=== PATIENT | male | born 1940 | race Caucasian/White ===

== ENCOUNTER 2019-12-13 14:07 | Outpatient (CLI) | payer MEDICARE, OTHER, SELFPAY ==
--- NOTE | 2019-12-13 14:14 | USCV_ITS ---
Javi Kennedy Age: 79 Gender: M : 1940 Exam Date: 12/13/2019 14:16 Ordering Phys: Nicholas Rausch MD Technologist: Sulaiman Gallegos [place]am [place] [facility] [place]ication: OPTIC NERVE TIA Risk Factors: Previous Vascular Surgery: Right Brachial BP: / Left Brachial BP: / Right Left Velocity (cm/s) Spectral Plaque Velocity (cm/s) Spectral Plaque Syst/Diast Broadening Syst/Diast Broadening 124.90/15.00 Prox CCA 136.80/ 14.90 110.00/17.00 Mid CCA 124.60/ 17.60 75.30/ 13.50 Distal CCA 97.50 / 23.00 69.90/ 17.10 Prox ICA 84.90 / 15.40 73.80/ 21.00 Mid ICA 87.10 / 13.20 77.70/ 24.90 Distal ICA 78.30 / 15.40 125.70 ECA 108.50 0.71 ICA/CCA 0.70 Antegrade Vertebral Antegrade 75.00/ 8.80 cm/s 63.90/ 11.00 cm/s Bi Subclavian Tri 105.8 111.4 0 0 FINDINGS Comparison: none available. No significant elevation of systolic or diastolic velocities. Waveforms are normal. No significant amount of calcified plaque or intimal thickening identified. CONCLUSIONS Bilateral ICA stenosis less than 50%. Minimal atherosclerosis in the bifurcations. Dr. Laxmi Martinez DO (Electronically Signed) Final Date: 13 December 2019 15:59 S
== END 2019-12-13 14:08 | disposition home or self-care (01) ==
LOC: RAD 14:12
PROVIDERS: Family Provider Family Medicine; PCP Family Medicine; Visit Provider Family Medicine
DX: I65.23 Occlusion and stenosis of bilateral carotid arteries (principal)
CPT/HCPCS: 93880

== ENCOUNTER 2020-04-28 10:12 | Outpatient (CLI) | payer MEDICARE, OTHER, SELFPAY ==
--- NOTE | 2020-04-28 10:27 | CT_ITS ---
WS: [id number] CT LUMBAR SPINE TECHNIQUE: Noncontrast CT of the lumbar spine with coronal and sagittal reformatted images. CLINICAL INFORMATION: THORACIC SPINE PAIN COMPARISON: None. DLP: 1516.[address] scans at [facility] use at least one of these dose optimization techniques: automat ed exposure control; mA and/or kV adjustment per patient size (includes targeted exams where dose is matched to clinical indication); or iterative reconstruction. FINDINGS: Mild lumbar curve. No acute compression fractures. Disc osteophyte complexes worse at L1-2 and L2-3 w ith moderate to severe central canal stenosis at these levels. Impingement subarticular recess bilate rally. Mild to moderate bony foraminal narrowing worse at bilateral L3-4 and right L4-5. Advanced fac et arthropathy L4-5. Partial fusion of the sacroiliac joints. A few sclerotic foci in the right sacru m likely incidental. CT/CT lumbar spine wo con* [id number] IMPRESSION: 1. No acute fractures. 2. Disc osteophyte complexes L1-2 and L2-3 with moderate to severe central can al stenosis. 3. Multilevel mild to moderate bony foraminal narrowing described above. 4. Advanced arthropathy L4-5.
--- NOTE | 2020-04-28 10:27 | CT_ITS ---
WS: [id number] CT THORACIC SPINE TECHNIQUE: Noncontrast CT of the thoracic spine with coronal and sagittal reformatted images. CLINICAL INFORMATION: LUMBAR SPINE PAIN COMPARISON: None. DLP: 2212.[address] scans at [facility] use at least one of these dose optimization techniques: automat ed exposure control; mA and/or kV adjustment per patient size (includes targeted exams where dose is matched to clinical indication); or iterative reconstruction. FINDINGS: Mild thoracic curve convex right. Moderate thoracic kyphosis. 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 Disc space heights are partially fused. Transverse fracture through the anterior superior endplate at T9 extending through the bridging anterior longit udinal ligament ossification. This extends into the T8-T9 disc space eccentric to the right. No retro pulsion. Pedicles appear preserved. Posterior elements appear intact. No other visualized fractures. Mild chronic central canal stenosis at T7-T8 due to disc osteophytic ridging.Multilevel mild to moderate bony foraminal narrowing worse a t T7-8, T9-10, adrenal glands are normal. CT/CT thoracic spin wo con* [id number] IMPRESSION: 1. Mild thoracic curve convex right with mild thoracic kyphosis. Flowing ossif ication anterior longitudinal ligament with preservation of the disc spaces com patible with diffuse idiopathic skeletal hyperostosis. 2. Nondisplaced transverse fracture involving the T9 anterior superior endplat es which extends through the anterior longitudinal ligament and into the disc s pace.No retropulsion. Minimal loss vertebral body height anteriorly. 3. No other visualized fractures.
== END 2020-04-28 10:13 | disposition home or self-care (01) ==
LOC: RAD 10:19
PROVIDERS: PCP Family Medicine; Visit Provider Nurse Practitioner Family
DX: M54.5 Low back pain (principal); M40.294 Other kyphosis, thoracic region; S22.079A Unspecified fracture of T9-T10 vertebra, initial encounter for closed fracture; X58.XXXA Exposure to other specified factors, initial encounter; M25.78 Osteophyte, vertebrae; M48.061 Spinal stenosis, lumbar region without neurogenic claudication; M47.816 Spondylosis without myelopathy or radiculopathy, lumbar region
CPT/HCPCS: 72128; 72131

== ENCOUNTER 2020-07-22 12:31 | Outpatient (CLI) | payer MEDICARE, OTHER, SELFPAY ==
--- NOTE | 2020-07-22 12:34 | USCV_ITS ---
Javi Kennedy Age: 79 Gender: M : 1940 Exam Date: 07/22/2020 12:30 Ordering Phys: Swathi Jaramillo PEARL FISHERMAN PEARL FISHERMAN Technologist: [place] [facility]: PAD RIGHT LEFT Brachial 154.00 mmHg Brachial 142.00 mmHg Pressure (mmHg) Waveform Pressure (mmHg) Waveform 224.00 Pre-Exercise Toe Pressure 149.00 1.45 Pre-Exercise Toe/Brachial Index 0.97 FINDINGS Normal resting ABIs and TBIs bilaterally CONCLUSIONS No significant arterial obstruction, based on the above findings Dr Christy Bridges MD [facility] (Electronically Signed) Final Date: 22 July 2020 23:26 S
== END 2020-07-22 12:32 | disposition home or self-care (01) ==
LOC: US 12:32
PROVIDERS: PCP Family Medicine; Visit Provider Nurse Practitioner Family
DX: I73.9 Peripheral vascular disease, unspecified (principal)
CPT/HCPCS: 93922

== ENCOUNTER → 2020-09-29 11:04 | Outpatient (BNVA) | payer MEDICARE, OTHER, SELFPAY | PROVIDERS: PCP Family Medicine; Visit Provider Internal Medicine | DX: M48.10 Ankylosing hyperostosis [Forestier], site unspecified (principal); Z79.899 Other long term (current) drug therapy; G89.29 Other chronic pain | CPT/HCPCS: 36415; 72040; 86812; 99204 ==

== ENCOUNTER → 2020-10-21 09:30 | Outpatient (BNVA) | payer MEDICARE, OTHER, SELFPAY | PROVIDERS: PCP Family Medicine; Referring Provider Internal Medicine; Visit Provider Anesthesiology Pain Medicine | DX: G89.29 Other chronic pain (principal); M50.90 Cervical disc disorder, unspecified, unspecified cervical region; M47.816 Spondylosis without myelopathy or radiculopathy, lumbar region; M48.062 Spinal stenosis, lumbar region with neurogenic claudication; M54.9 Dorsalgia, unspecified | CPT/HCPCS: 99205 ==

== ENCOUNTER 2021-01-13 06:00 | Outpatient (RCR) | payer MEDICARE, OTHER, SELFPAY | END 2021-01-17 23:59 | disposition home or self-care (01) | LOC: APT 06:00 | PROVIDERS: PCP Family Medicine; Referring Provider Physical Medicine & Rehabilitation; Visit Provider Physical Medicine & Rehabilitation | DX: M54.2 Cervicalgia (principal); M54.5 Low back pain; M48.10 Ankylosing hyperostosis [Forestier], site unspecified | CPT/HCPCS: 97110; 97163 ==

== ENCOUNTER 2021-01-18 06:00 | Outpatient (RCR) | payer MEDICARE, OTHER, SELFPAY | END 2021-02-17 23:59 | disposition home or self-care (01) | LOC: APT 06:00 | PROVIDERS: PCP Family Medicine; Referring Provider Physical Medicine & Rehabilitation; Visit Provider Physical Medicine & Rehabilitation | DX: M48.10 Ankylosing hyperostosis [Forestier], site unspecified (principal); M54.2 Cervicalgia; M54.5 Low back pain | CPT/HCPCS: 97110; 97164 ==

== ENCOUNTER 2021-02-18 06:00 | Outpatient (RCR) | payer MEDICARE, OTHER, SELFPAY | END 2021-03-19 23:59 | disposition home or self-care (01) | LOC: APT 06:00 | PROVIDERS: PCP Family Medicine; Referring Provider Physical Medicine & Rehabilitation; Visit Provider Physical Medicine & Rehabilitation | DX: M48.10 Ankylosing hyperostosis [Forestier], site unspecified (principal); M54.2 Cervicalgia; M54.5 Low back pain | CPT/HCPCS: 97110 ==

== ENCOUNTER → 2023-04-25 13:30 | Outpatient (BNVA) | payer MEDICARE, OTHER, SELFPAY | PROVIDERS: PCP Family Medicine; Visit Provider Nurse Practitioner Family | DX: L57.8 Other skin changes due to chronic exposure to nonionizing radiation (principal); L57.0 Actinic keratosis; Z80.8 Family history of malignant neoplasm of other organs or systems; L82.1 Other seborrheic keratosis; L81.4 Other melanin hyperpigmentation; D22.5 Melanocytic nevi of trunk; Z71.89 Other specified counseling; L85.3 Xerosis cutis; L21.8 Other seborrheic dermatitis; D17.22 Benign lipomatous neoplasm of skin and subcutaneous tissue of left arm | CPT/HCPCS: 17000; 17003; 99214 ==

== ENCOUNTER → 2023-11-01 14:57 | Outpatient (BNVA) | payer MEDICARE, OTHER, SELFPAY | PROVIDERS: PCP Family Medicine; Visit Provider Nurse Practitioner Family | DX: L57.0 Actinic keratosis (principal); Z80.8 Family history of malignant neoplasm of other organs or systems; L21.8 Other seborrheic dermatitis; L73.8 Other specified follicular disorders; D17.1 Benign lipomatous neoplasm of skin and subcutaneous tissue of trunk; L57.8 Other skin changes due to chronic exposure to nonionizing radiation; L82.1 Other seborrheic keratosis; L81.4 Other melanin hyperpigmentation; D22.5 Melanocytic nevi of trunk | CPT/HCPCS: 17000; 99214 ==

== ENCOUNTER 2025-05-20 06:30 | Outpatient (RCR) | payer MEDICARE, OTHER, SELFPAY | END 2025-06-19 23:59 | disposition home or self-care (01) | LOC: APT 06:30 | PROVIDERS: PCP Family Medicine; Visit Provider Family Medicine | DX: M25.511 Pain in right shoulder (principal) | CPT/HCPCS: 97110; 97140; 97163; 97530 ==

== ENCOUNTER 2025-06-20 06:00 | Outpatient (RCR) | payer MEDICARE, OTHER, SELFPAY | END 2025-07-20 23:59 | disposition home or self-care (01) | LOC: APT 06:00 | PROVIDERS: PCP Family Medicine; Visit Provider Family Medicine | DX: M25.511 Pain in right shoulder (principal) | CPT/HCPCS: 97110; 97112; 97530 ==

== ENCOUNTER 2025-08-12 12:51 | Outpatient (RCR) | payer MEDICARE, OTHER, SELFPAY | END 2025-08-19 23:59 | disposition home or self-care (01) | LOC: APT 12:51 | PROVIDERS: PCP Family Medicine; Visit Provider Family Medicine | DX: M25.511 Pain in right shoulder (principal) | CPT/HCPCS: 97110; 97112; 97530 ==